=== PATIENT | female | born 1995 | race Caucasian/White ===

== ENCOUNTER 2018-11-16 20:00 | Inpatient (IN) | payer MEDICAID ==
[~2018-11-16] VITALS: Ht 160 cm; Wt 66.7 kg
--- NOTE | 2018-11-16 20:30 | NUR ---
Patient to ER bed 5 for evaluation. Side rails up.
[2018-11-16 20:35] VITALS: BP_SYST 147
--- NOTE | 2018-11-16 20:39 | NUR ---
Pt C/O nausea, 1 episode of vomiting, dizziness, shortness of breath, constipation since Tuesday and breast pain. Pt recently had breast augmentation and abdominal/ neck liposuction on Tuesday. Currently taking antibiotics at this time. Hx diabetes, current sugar is 269. Will continue to monitor.
--- NOTE | 2018-11-16 21:05 | NUR ---
Pt began to vomit in bed, Dr. Mota notified. Will continue to monitor.
--- NOTE | 2018-11-16 21:10 | NUR ---
ER Dr. Mota at bedside examining patient.
[2018-11-16] MEDS ORDERED: NACL 0.9% 1,000 ML IV ONE ×2 (21:11→21:57)
[2018-11-16] MEDS ORDERED: ONDANSETRON HCL 4 MG/2 ML VIAL IVP ONE (21:15)
[2018-11-16 21:48] LABS: BASOPHILS # (AUTO) 0.1 K/uL (0.0-0.2); BASOPHILS % (AUTO) 0.5 % (0.0-2.0); HEMATOCRIT 40.4 % (36-48); HEMOGLOBIN 13.1 g/dL (12.0-16.0); LYMPHOCYTES # (AUTO) 0.7 K/uL (1.0-5.5); LYMPHOCYTES % (AUTO) 4.6 % (20.5-51.5); MEAN CORPUSCULAR HEMOGLOBIN 30 pg (27-31); MEAN CORPUSCULAR HGB CONC 32 % (32-36); MEAN CORPUSCULAR VOLUME 93 fL (79.0-98.0); MONOCYTES # (AUTO) 0.5 K/uL (0.0-1.0); MONOCYTES % (AUTO) 3.8 % (1.7-9.3); NEUTROPHILS # (AUTO) 13.2 K/uL (1.8-7.7); NEUTROPHILS % (AUTO) 91.1 % (40.0-70.0); PLATELET COUNT (AUTO) 404 K/uL (130-430); RED BLOOD CELL COUNT(AUTO) 4.34 MIL/uL (4.2-6.2); RED CELL DISTRIBUTION WIDTH 14.3 % (9.0-15.0); WHITE BLOOD COUNT (AUTO) 14.4 K/uL (4.8-10.8)
[2018-11-16] MEDS ORDERED: NA PHOS,M-B/NA PHOS,DI-BA 118 ML (FLEET ENEMA) RC ONE (22:00)
[2018-11-16] MEDS ORDERED: MAG-AL HYDROX/SIMETH 30 ML UDC PO ONE (22:00)
--- NOTE | 2018-11-16 22:00 | NUR ---
Medication reconciliation completed with information provided by patient.
[2018-11-16 22:02] LABS: CALCIUM 8.5 mg/dL (8.4-11.0); CREATININE 1.1 mg/dL (0.55-1.30); POTASSIUM 4.7 mmol/L (3.5-5.1)
[2018-11-16 22:07] LABS: TOTAL BILIRUBIN 0.5 mg/dL (0.0-1.0)
--- NOTE | 2018-11-16 23:08 | NUR ---
Pt is resting quietly in bed, denies nausea at this time. Requesting enema to be given prior to admission. Will continue to monitor.
[2018-11-16] MEDS ORDERED: INSULIN REGULAR, HUMAN 10 UNITS/0.1 ML INJ IVP ONE (23:15)
[2018-11-16] MEDS ORDERED: SSREG SUBCUT (23:19)
[2018-11-16 23:26] LABS: BILIRUBIN,URINE NEGATIVE (NEGATIVE); BLOOD, URINE 1+ (NEGATIVE); CLARITY/URINE CLEAR (CLEAR); COLOR,URINE YELLOW (YELLOW); GLUCOSE,URINE 2+ (NEGATIVE); KETONES,URINE 3+ (NEGATIVE); LEUKOCYTE ESTERASE ,URINE NEGATIVE (NEGATIVE); NITRITE, URINE NEGATIVE (NEGATIVE); PROTEIN URINE 1+ (NEGATIVE); UROBILINOGEN,URINE 0.2 (0.2-1.0)
[2018-11-16] MEDS ORDERED: NPH,100V2 SQ (23:32)
[2018-11-16 23:35] LABS: BACTERIA,URINE FEW /HPF (None Seen); WBC,URINE 0-3 /HPF (0-3)
[2018-11-17] VITALS (22 sets, daily range): BP systolic 98–141
--- NOTE | 2018-11-17 00:20 | NUR ---
Pt's fingerstick glucose level is 229 after 2L of normal saline and [address] Nakul rodriguez[address]
--- NOTE | 2018-11-17 01:27 | NUR ---
Patient will be admitted to care of Dr. Collins. Admitted to ICU unit. Will go to room ICU 6. Belongings list completed. Summary report printed. Report will be given at bedside.
[2018-11-17] MEDS ORDERED: INSULIN REGULAR, HUMAN 100 UNITS in NS 99 ML IV PRN ×2 (01:30)
[2018-11-17] MEDS ORDERED: DEXTROSE 50% JECT 50 ML DISP.SYRIN IVP PRN (01:30)
--- NOTE | 2018-11-17 01:35 | NUR ---
Transfer to ICU 6 via ACLS protocol. Licensed nurse present. IV present no signs or symptoms of infiltration.
--- NOTE | 2018-11-17 02:20 | NUR ---
ADMITTED PATIENT IN ICU ROOM 6 AT 0130 A.M, RECEIVED NURSING REPORT FROM Ronaldo ZUNIGA R.N, THIS IS A 23 YEARS OLD FEMALE , ALERT, VERBAL RESPONSE, ORIENTED X4, DIAGNOSIS : DKA, IDDM, CHIEF COMPLAIN: SHORT OF BREATH, DIZZNESS, NAUSEA, VOMITING, ALSO CONSTIPATION SINCE 11/12/18,PATIENT WAS REFUSED FLEET ENEMA AT THIS TIME, REQUESTED ENEMA IN THE MORNING, HAD SURGERY ON 11/13/18, WITH BILATERAL BREASTS MOMMY PLASTIC AND NECK AREA AND BELLY AREA LIPID SUCTION, VITAL SIGN : TEMPERATURE 99.4.F, H.R 139, IS SINUS TACHYCARDIA, RESPIRATORY RATE 31 , O2 SAT. 100 % WITH ROOM AIR, B.P 122/79 MMHG, PAIN SCALE 8/10, REPORTED TO , ORDERED GIVE MORPHINE 2 MG IVP STAT, B.S 267, ORDERED ICE CHIP ONLY NO FOOD NOW, CALL LIGHT IN REACH, GIVE ENVIRONMENT ORIENTATION, KEEP COMFORTABLE SUPPORT ALL TIME, AND CLOSE MONITOR
[2018-11-17] MEDS ORDERED: MORPHINE 2 MG/ML INJ. SYRINGE ONE (02:26)
[2018-11-17] MEDS ORDERED: MORPHINE 2 MG/ML INJ. SYRINGE IVP PRN ×3 (02:30→08:30)
[2018-11-17] MEDS: KCL 20 mEq in NS 1000 mL 1,000 ML IV SCH ×5 (02:53→22:49)
[2018-11-17] MEDS ORDERED: KCL 20 mEq in NS 1000 mL 1,000 ML IV ONE (02:57)
--- NOTE | 2018-11-17 05:00 | NUR ---
AT 0500 A.M, WITNESSED INSULIN DRIP DOSE TITRATED DOWN TO 1 UNIT/HOUR
--- NOTE | 2018-11-17 05:20 | NUR ---
CONSULT Called Dr. Hans/Dr. Gómez paperhanger contractor exchange for morning consult [phone] Spoke to Michelle
[2018-11-17 06:58] LABS: BASOPHILS % (AUTO) 0.2 % (0.0-2.0); HEMATOCRIT 36.2 % (36-48); HEMOGLOBIN 11.8 g/dL (12.0-16.0); LYMPHOCYTES # (AUTO) 1.1 K/uL (1.0-5.5); LYMPHOCYTES % (AUTO) 8.9 % (20.5-51.5); MEAN CORPUSCULAR HEMOGLOBIN 30 pg (27-31); MEAN CORPUSCULAR HGB CONC 33 % (32-36); MEAN CORPUSCULAR VOLUME 91 fL (79.0-98.0); MONOCYTES # (AUTO) 0.8 K/uL (0.0-1.0); MONOCYTES % (AUTO) 6.1 % (1.7-9.3); NEUTROPHILS # (AUTO) 10.9 K/uL (1.8-7.7); PLATELET COUNT (AUTO) 308 K/uL (130-430); RED BLOOD CELL COUNT(AUTO) 3.96 MIL/uL (4.2-6.2); RED CELL DISTRIBUTION WIDTH 14.4 % (9.0-15.0); WHITE BLOOD COUNT (AUTO) 12.9 K/uL (4.8-10.8)
--- NOTE | 2018-11-17 07:00 | NUR ---
Rounds Dr. Baca @ bedside. New orders received.
[2018-11-17 07:07] LABS: CALCIUM 7.5 mg/dL (8.4-11.0); CREATININE 0.94 mg/dL (0.55-1.30); PHOSPHORUS 1.3 mg/dL (2.7-4.5); POTASSIUM 4.7 mmol/L (3.5-5.1)
--- NOTE | 2018-11-17 07:15 | NUR ---
Opening Note Patient received awake in bed @ this time. Patient on satellite project site monitor with sinus tachy. Patient on room air breathing evenly and unlabored, no signs of distress noted. Patient has a left AC 18 gauge infusing NS + 20 meq KCL @ 200 ml/hr and insulin drip @ 0.5 units/hr. Patient uses the commode @ bedside. Patient is not complaining of pain @ this time. Safety precautions enforced. Call light in reach.
--- NOTE | 2018-11-17 08:00 | NUR ---
New consult paged to Dr. Nunez, spoke with delano Quiñonez.
[2018-11-17 08:10] LABS: NEUTROPHILS % (AUTO) 84.8 % (40.0-70.0)
--- NOTE | 2018-11-17 08:15 | NUR ---
MD Rounds Dr. Beck @ bedside. Updated MD on patient status. New orders received and carried out.
[2018-11-17] MEDS ORDERED: ACETAMINOPHEN 325 MG TABLET PO PRN (08:30)
[2018-11-17] MEDS ORDERED: MUPIROCIN 2% TOPICAL OINTMENT 22 GM NS PRN (08:30)
[2018-11-17] MEDS ORDERED: LORazepam 2 MG/ML VIAL IVP PRN (08:30)
[2018-11-17] MEDS ORDERED: MAGNESIUM SULFATE 50 ML IV PRN (08:30)
[2018-11-17] MEDS ORDERED: ONDANSETRON HCL 4 MG/2 ML VIAL IVP PRN (08:30)
[2018-11-17] MEDS ORDERED: BISACODYL 5 MG TABLET.DR (DULCOLAX) PO ONE (08:30)
[2018-11-17] MEDS ORDERED: POTASSIUM CHLORIDE 20 MEQ TAB.PRT.SR PO PRN (08:30)
[2018-11-17] MEDS ORDERED: DOCUSATE SODIUM 100 MG CAPSULE PO PRN (08:30)
[2018-11-17] MEDS ORDERED: ZOLPIDEM TARTRATE 5 MG TABLET PO PRN (08:30)
--- NOTE | 2018-11-17 08:41 | NUR ---
CONSULTATION PAGED/CALLED Reason for Consultation: [] SEVERE ACIDOSIS Person Who was Notified: [] DR MORFIN Consulting Physician: [] DR Michael MORFIN Lacquer Coater Specialty: [] NEPHROLOGY Ordering Physician: [] DR Marge MONTALVO
[2018-11-17 09:05] LABS: HCG,QUAL RESULT NEGATIVE (NEGATIVE)
--- NOTE | 2018-11-17 09:05 | NUR ---
RN Update Patient requested to take dulcolax later in the day. Patient in no signs of distress @ this time.
[2018-11-17 09:39] LABS: BARBITURATE, URINE NEGATIVE (NEG <=200); BENZODIAZEPINE, URINE NEGATIVE (NEG <=150); CANNABINOID, URINE NEGATIVE (NEG <=50); COCAINE, URINE NEGATIVE (NEG <=150); METHAMPHETAMINES SCREEN,URINE NEGATIVE (NEG <=500); OPIATE, URINE POSITIVE (NEG <=100); PHENCYCLIDINE SCREEN,URINE NEGATIVE (NEG <=25); UR TRICYCLIC ANTIDEPRESSANTS NEGATIVE (NEG <=300); URINE AMPHETAMINE NEGATIVE (NEG <=500); URINE METHADONE NEGATIVE (NEG <=200); URINE OXYCODONE SCREEN NEGATIVE (NEG <=100); URINE PROPOXYPHENE SCREEN NEGATIVE (NEG <=300)
--- NOTE | 2018-11-17 10:13 | NUR ---
Witnessed insulin drip titration to 1 unit/hr, BS 195.
[2018-11-17 10:40] LABS: CALCIUM 7.9 mg/dL (8.4-11.0); CREATININE 0.87 mg/dL (0.55-1.30); POTASSIUM 4.1 mmol/L (3.5-5.1)
[2018-11-17] MEDS: cefTRIAXone 1 GM in D5W 50 ML IV SCH (10:45)
[2018-11-17] MEDS ORDERED: SODIUM BICARBONATE 8.4% JECT 50 MEQ/50 ML SYRINGE IVP ONE ×2 (11:21→12:00)
[2018-11-17] MEDS ORDERED: SODIUM BICARBONATE 8.4% JECT 50 MEQ/50 ML SYRINGE ONE (11:36)
--- NOTE | 2018-11-17 12:40 | NUR ---
Rounds Dr. Nunez @ bedside for assessment.
--- NOTE | 2018-11-17 13:11 | NUR ---
Witnessed insulin drip titration to 0.5 units/hr, BS 185.
--- NOTE | 2018-11-17 14:00 | NUR ---
RN Rounds Patient accompanied by boyfriend @ bedside. Patient in no signs of distress @ this time. Patient does not have complaints of pain.
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
--- NOTE | 2018-11-17 15:04 | NUR ---
Witnessed insulin drip titration to 3 units/hr, BS 308.
[2018-11-17 15:13] LABS: CALCIUM 7.2 mg/dL (8.4-11.0); CREATININE 0.84 mg/dL (0.55-1.30); POTASSIUM 3.4 mmol/L (3.5-5.1)
--- NOTE | 2018-11-17 15:37 | NUR ---
Dietitian Recommendations * Consider advance to [facility], 2 gm Na diet, gluten-free diet if/when medically appropriate ALEXIS, RD Please refer to Nutrition Assessment for details. Addendum: 11/17/18 at [address] Amended: Links added.
--- NOTE | 2018-11-17 16:05 | NUR ---
Witnessed insulin drip titration to 2 units/hr, BS 280.
--- NOTE | 2018-11-17 16:19 | NUR ---
RN Rounds Patient resting comfortably in bed @ this time. Patient was offered CHG bath and she requested for it to be given later. Patient in no signs of distress @ this time.
--- NOTE | 2018-11-17 17:06 | NUR ---
Witnessed insulin drip titration to 0.5 units/hr, BS 175
--- NOTE | 2018-11-17 18:01 | NUR ---
Witnessed insulin drip titration to 1 unit/hr, BS 215.
[2018-11-17 18:38] LABS: CALCIUM 7.9 mg/dL (8.4-11.0); CREATININE 0.85 mg/dL (0.55-1.30); POTASSIUM 3.3 mmol/L (3.5-5.1)
--- NOTE | 2018-11-17 19:15 | NUR ---
RECEIVED NURSING REPOPRT FROM DAY SHIFT DOMINGO Medina
--- NOTE | 2018-11-17 19:30 | NUR ---
Closing Note Endorsed patient to cook night RN using SBAR format. No signs of distress noted.
--- NOTE | 2018-11-17 19:34 | NUR ---
Witnessed insulin drip titration to 3 units, BS 306.
--- NOTE | 2018-11-17 20:12 | NUR ---
2000 P.M, B.S 324, INSULIN DRIP SLIDING SCALE , ON RI INSULIN DRIP 3 UNITS/HOUR
--- NOTE | 2018-11-17 21:31 | NUR ---
B.S 215, SLIDING SCALE INSULIN DRIP DOSE REDUCED TO 1 UNIT/HOUR
--- NOTE | 2018-11-17 21:31 | NUR ---
INSULIN DRIP I witnessed Maria Elena PEARCE decrease insulin drip to 1 unit/hour.
--- NOTE | 2018-11-17 22:15 | NUR ---
AT 2200 P.M, B.S 190, INSULIN SLIDING SCALE, REDUCED INSULIN DRIP TO 0.5 UNIT/HR
--- NOTE | 2018-11-17 22:17 | NUR ---
INSULIN DRIP I witnessed Maria Elena PEARCE decrease insulin drip to 0.5 unit/hour.
[2018-11-17 22:31] LABS: CALCIUM 7.2 mg/dL (8.4-11.0); CREATININE 0.79 mg/dL (0.55-1.30); POTASSIUM 3.1 mmol/L (3.5-5.1)
--- NOTE | 2018-11-17 23:01 | NUR ---
AT 2300 P.M, B.S 172, KEEP SAME DOSE FOR INSULIN DRIP
--- NOTE | 2018-11-17 23:21 | NUR ---
MD KISER called Dr. Nunez's exchange for orders/Dr. Dubois civil division commander deputy sheriff [phone] Spoke to Michelle
--- NOTE | 2018-11-17 23:34 | NUR ---
AT 2330 P.M, SPOKE TO Dr. STEVENS REGARDING OF LAB. RESULT AND PATIENT,S CONDITION, ORDERED KEEP SAME TREATMENT ORDER AND CLOSE MONITOR
[2018-11-18] VITALS (18 sets, daily range): BP systolic 102–139
--- NOTE | 2018-11-18 00:11 | NUR ---
AT 0000 A.M, B.S 170, KEEP SAME DOSE OF INSULIN DRIP
--- NOTE | 2018-11-18 01:14 | NUR ---
AFTER FLEET ENEMA, PATIENT HAD EXTRA-LARGE AMOUNT BOWEL MOVEMENT
--- NOTE | 2018-11-18 01:22 | NUR ---
AT 0100 A.M, B.S 174, INSULIN SLIDING SCALE KEEP SAME INSULIN DRIP DOSE 0.5 UNIT/HOUR
[2018-11-18 03:02] LABS: CALCIUM 7.3 mg/dL (8.4-11.0); CREATININE 0.62 mg/dL (0.55-1.30)
[2018-11-18 03:05] LABS: POTASSIUM 2.9 mmol/L (3.5-5.1)
--- NOTE | 2018-11-18 03:36 | NUR ---
AT 0300 A.M, B.S 179 , SLIDING SCALE KEEP SAME INSULIN DRIP DOSE
--- NOTE | 2018-11-18 03:37 | NUR ---
MD KISER Called Dr. Dubois's exchange [phone] Spoke to Michelle
--- NOTE | 2018-11-18 03:41 | NUR ---
SPOKE TO DR. STEVENS REGARDING THE 0200 LAB. RESULT: POTASSIUM 2.9, ORDERED GIVE K-RIDER 40 MEQ IVPB X ONCE
[2018-11-18] MEDS ORDERED: POTASSIUM CHLORIDE 40 MEQ in NS 250 ML IV ONE (03:45)
[2018-11-18] MEDS ORDERED: KCL 20 mEq in 100 mL (PREMIX) 100 ML IV ONE ×2 (04:15→06:15)
[2018-11-18] MEDS: KCL 20 mEq in NS 1000 mL 1,000 ML IV SCH ×4 (04:18→21:31)
--- NOTE | 2018-11-18 05:51 | NUR ---
B.S 170, ORDERED CHANGE ACCU CHECK TO EVERY 2 HOURS, NEXT TIME IS 0800 A.M
[2018-11-18 06:34] LABS: CALCIUM 7.7 mg/dL (8.4-11.0); CREATININE 0.61 mg/dL (0.55-1.30)
[2018-11-18 06:57] LABS: POTASSIUM 2.9 mmol/L (3.5-5.1)
[2018-11-18 07:07] LABS: BASOPHILS % (AUTO) 0.1 % (0.0-2.0); EOSINOPHILS % (AUTO) 0.8 % (0.0-4.0); HEMATOCRIT 28.9 % (36-48); LYMPHOCYTES # (AUTO) 0.9 K/uL (1.0-5.5); LYMPHOCYTES % (AUTO) 20.5 % (20.5-51.5); MEAN CORPUSCULAR HEMOGLOBIN 31 pg (27-31); MEAN CORPUSCULAR HGB CONC 35 % (32-36); MEAN CORPUSCULAR VOLUME 88 fL (79.0-98.0); MONOCYTES # (AUTO) 0.4 K/uL (0.0-1.0); MONOCYTES % (AUTO) 9.5 % (1.7-9.3); NEUTROPHILS # (AUTO) 2.9 K/uL (1.8-7.7); NEUTROPHILS % (AUTO) 69.1 % (40.0-70.0); PLATELET COUNT (AUTO) 195 K/uL (130-430); RED BLOOD CELL COUNT(AUTO) 3.27 MIL/uL (4.2-6.2); RED CELL DISTRIBUTION WIDTH 14.1 % (9.0-15.0)
--- NOTE | 2018-11-18 07:30 | NUR ---
AM ROUNDS: PATIENT AWAKE DURING ROUNDS.RECEIVED REPORT FROM JULISA.ON INSULIN DRIP AT 0.5UNITS/HR AT LEFT AC INTACT. NO ACUTE DISTRESS. CONDITION GUARDED.
[2018-11-18 07:31] LABS: WHITE BLOOD COUNT (AUTO) 4.2 K/uL (4.8-10.8)
--- NOTE | 2018-11-18 07:54 | NUR ---
AT 0728 A.M, GIVE COMPLETE NURSING REPORT TO DAY SHIFT R.N
--- NOTE | 2018-11-18 08:00 | NUR ---
BLOOD SUGAR: [id number]/DL,NO CHANGE OF RATE PER PROTOCOL.
[2018-11-18] MEDS: cefTRIAXone 1 GM in D5W 50 ML IV SCH (08:10)
[2018-11-18 10:17] LABS: CALCIUM 7.6 mg/dL (8.4-11.0); CREATININE 0.58 mg/dL (0.55-1.30); POTASSIUM 3.1 mmol/L (3.5-5.1)
--- NOTE | 2018-11-18 10:24 | NUR ---
INSULIN DRIP. WITNESSED NURSE INSULIN DRIP TITRATED TO 2 UNIT/HR, BLOOD SUGAR 299 MG/DL.
--- NOTE | 2018-11-18 10:25 | NUR ---
BLOOD SUGAR: [id number]/DL,INSULIN DRIP INCREASED TO 2 UNITS/HR PER PROTOCOL,SECOND RN ZACARIAS VELIZ.
--- NOTE | 2018-11-18 11:22 | NUR ---
New Orders: Downgrade from ICU as ordered. Dc insulin drip ,blood sugar check Ac Hs as ordered.
[2018-11-18] MEDS: INSULIN REGULAR, HUMAN 100 UNITS/ML, 10 ML VIAL (humuLIN R) SUBCUT PRN ×3 (11:49→20:15)
--- NOTE | 2018-11-18 11:51 | NUR ---
BLOOD SUGAR: [id number]/DL,HUMULIN R 6 UNITS SUBQ GIVEN PER SLIDING SCALE.NO PROBLEM.
--- NOTE | 2018-11-18 13:10 | NUR ---
Lunch: Patient ate lunch already.Tolerated well. Boyfriend at the bedside. No distress.
--- NOTE | 2018-11-18 15:04 | NUR ---
Report: Report given to [facility] nurse
[2018-11-18 15:20] LABS: CALCIUM 7.5 mg/dL (8.4-11.0); CREATININE 0.79 mg/dL (0.55-1.30); POTASSIUM 3.4 mmol/L (3.5-5.1)
--- NOTE | 2018-11-18 15:34 | NUR ---
TRANSFER TO [facility]: WHEELED PATIENT TO [facility],ROOM 119-B IN STABLE CONDITION. PUT PATIENT TO TELEMETRY.PORTIA MONSIVAIS AWARE. PERSONAL BELONGINGS COMPLETED.
--- NOTE | 2018-11-18 15:45 | NUR ---
Received patient from ICU Patient sitting up in bed, A/Ox4, no complaints of pain. IV patent, intact, and infusing fluids as ordered. No adverse side effects noted. On safety precautions, bed in lowest position, bed alarm on, call light within reach. Patient in stable condition, Will continue to monitor.
--- NOTE | 2018-11-18 18:00 | NUR ---
Closing note Patient sitting up in bed, eating dinner, tolerating well. No nausea, no vomiting noted. No complaints of pain.
--- NOTE | 2018-11-18 19:05 | NUR ---
OPENING NOTE Bedside report received from dayshift nurse. Patient received lying in bed, watching tv, no s/s of acute distress noted, patient denies any pain. Breathing even and unlabored. Skin warm and dry to touch. IVF infusing well, IV site patent, no signs of infiltration or infection noted. Call light with patient. Bed is locked and at lowest position. Will continue to monitor.
[2018-11-18 19:22] LABS: CALCIUM 7.3 mg/dL (8.4-11.0); CREATININE 0.6 mg/dL (0.55-1.30); POTASSIUM 3.7 mmol/L (3.5-5.1)
--- NOTE | 2018-11-18 21:00 | NUR ---
ROUNDS Patient in bed, awake, watching TV. No signs of discomfort. patient denies pain. Chest rise and fall even bilaterally. Call light with patient. Will continue to monitor.
--- NOTE | 2018-11-18 22:45 | NUR ---
REFUSED LAB DRAW Patient refused lab draw at this time. Patient educated on its purpose, but still refused.
--- NOTE | 2018-11-18 23:00 | NUR ---
ROUNDS Patient in bed, awake, watching TV. No s/s of acute distress noted. Breathing even and unlabored. IVF infusing well. Call light with patient.
[2018-11-19] VITALS: BP_SYST 112
--- NOTE | 2018-11-19 01:00 | NUR ---
ROUNDS Patient in bed, awake, watching TV. No signs of discomfort noted, patient denies any pain. Chest rise and fall even bilaterally. IVF infusing well. Call light with patient. Will continue to monitor.
[2018-11-19] MEDS: KCL 20 mEq in NS 1000 mL 1,000 ML IV SCH ×3 (02:10→11:04)
--- NOTE | 2018-11-19 03:00 | NUR ---
ROUNDS Patient sleeping at this time. No s/s of acute distress noted. Breathing even and unlabored. IVF infusing well. Call light with patient. Will continue to monitor.
--- NOTE | 2018-11-19 05:00 | NUR ---
ROUNDS Patient sleeping. No signs of discomfort noted. Chest rise and fall even bilaterally. IVF infusing well. Call light with patient. Will continue to monitor.
[2018-11-19] MEDS: INSULIN REGULAR, HUMAN 100 UNITS/ML, 10 ML VIAL (humuLIN R) SUBCUT PRN ×2 (06:03→11:08)
[2018-11-19 06:36] LABS: BASOPHILS % (AUTO) 0.3 % (0.0-2.0); EOSINOPHILS # (AUTO) 0.1 K/uL (0.0-0.4); EOSINOPHILS % (AUTO) 2.6 % (0.0-4.0); HEMOGLOBIN 10.2 g/dL (12.0-16.0); LYMPHOCYTES # (AUTO) 1.2 K/uL (1.0-5.5); MEAN CORPUSCULAR HEMOGLOBIN 30 pg (27-31); MEAN CORPUSCULAR HGB CONC 34 % (32-36); MEAN CORPUSCULAR VOLUME 89 fL (79.0-98.0); MONOCYTES # (AUTO) 0.3 K/uL (0.0-1.0); MONOCYTES % (AUTO) 9.9 % (1.7-9.3); NEUTROPHILS # (AUTO) 1.6 K/uL (1.8-7.7); NEUTROPHILS % (AUTO) 49.2 % (40.0-70.0); PLATELET COUNT (AUTO) 189 K/uL (130-430); RED BLOOD CELL COUNT(AUTO) 3.39 MIL/uL (4.2-6.2); WHITE BLOOD COUNT (AUTO) 3.2 K/uL (4.8-10.8)
--- NOTE | 2018-11-19 06:43 | NUR ---
CLOSING NOTES Patient in bed, sleeping. No s/s of acute distress noted. Breathing even and unlabored. HOB raised. IVF infusing well, IV site patent, no signs of infiltration or infection noted. All dressing intact, clean, and dry, no signs of active bleeding noted. All needs met throughout shift. Fall and safety precautions maintained throughout shift. Will continue to monitor until patient care is endorsed to oncoming dayshift nurse.
[2018-11-19 07:05] LABS: CALCIUM 7.6 mg/dL (8.4-11.0); CREATININE 0.45 mg/dL (0.55-1.30); POTASSIUM 3.6 mmol/L (3.5-5.1)
--- NOTE | 2018-11-19 07:30 | NUR ---
Opening note Patient sitting up in bed, eating breakfast, A/Ox4, no complaints of pain. IV patent, intact, and infusing fluids as ordered. No adverse side effects noted. No SOB. Patient refusing SCD, explained the purpose, patient stated she walks to the bathroom often and the SCD gets in the way. On safety precautions, bed in lowest position, bed alarm on, call light within reach. Patient in stable condition, Will continue to monitor.
[2018-11-19 08:05] VITALS: BP_SYST 126
[2018-11-19] MEDS: cefTRIAXone 1 GM in D5W 50 ML IV SCH (08:31)
--- NOTE | 2018-11-19 09:00 | NUR ---
Medication Morning antibiotics given as ordered. No adverse side effects noted. Iv patent, intact. No infiltration noted.
--- NOTE | 2018-11-19 11:00 | NUR ---
MD rounds patient seen by MD, made aware of patient labs and sepsis risk. No new orders. Will continue to monitor.
--- NOTE | 2018-11-19 11:26 | NUR ---
accu check Patient sitting up in bed at this time, visitors at bedside. Blood sugar checked and insulin coverage given as ordered.
[2018-11-19] MEDS ORDERED: INSU100V9 SQ (12:43)
[2018-11-19 13:18] VITALS: BP_SYST 114
--- NOTE | 2018-11-19 13:20 | NUR ---
Lunch Patient sitting up in bed, eating lunch, tolerated well. No nausea, no vomiting noted. Patient in stable condition.
[2018-11-19 13:36] VITALS: BP_SYST 126
--- NOTE | 2018-11-19 14:52 | NUR ---
D/C Patient Patient given medication reconciliation form and D/C instructions. Exit Care provided. Patient verbalized understanding. MD discussed with patient the results and treatment provided. Ambulatory with steady gait for discharge to home. Patient in stable condition, ID band removed. IV catheter removed, intact and dressing applied, no active bleeding.Patient educated on pain management. All belongings sent with patient.
== END 2018-11-19 14:52 | disposition home or self-care (01) | DRG 420 ==
LOC: SED 20:00 → SIC 11-17 00:47 → STU 11-18 15:55
PROVIDERS: ADMIT General Practice; ATTEND General Practice
DX: E10.10 Type 1 diabetes mellitus with ketoacidosis without coma (principal); J96.01 Acute respiratory failure with hypoxia; R65.10 Systemic inflammatory response syndrome (SIRS) of non-infectious origin without acute organ dysfunction; E87.1 Hypo-osmolality and hyponatremia; E86.0 Dehydration; E87.6 Hypokalemia; D64.9 Anemia, unspecified; K59.00 Constipation, unspecified; Z79.4 Long term (current) use of insulin; Z80.52 Family history of malignant neoplasm of bladder; Z91.19 Patient's noncompliance with other medical treatment and regimen; Z88.8 Allergy status to other drugs, medicaments and biological substances
CPT/HCPCS: 36415; 36600; 71045; 76700-TC; 80048; 80053; 80307; 81000-TC; 82803-TC; 82962; 83735-TC; 84100-TC; 84703; 85025; 87081; 96361; 96375; 99285; G0378; J0696; J1815; J2270; J2405; J3480; J7030; J7060